=== PATIENT | female | born 1955 | race Caucasian/White ===

== ENCOUNTER 2024-11-27 09:27 | Emergency (ER) | payer OTHER, SELFPAY ==
[2024-11-27 09:36] VITALS: BP 121/67; PULSE 71; RESP 18; TEMP 36.4; BMI 34.2
--- NOTE | 2024-11-27 09:47 | XR_ITS ---
Examination: CT lumbar spine, without contrast. 2-D sagittal reconstructions. 2-D coronal reconstructions. 3-D reconstructions. Date and time of exam:November 27, 2024 1042 hours INDICATIONS: Onset lower back pain today CTDI: vol (mGy):26.8 DLP: (mGycm):856 Technique: Multiple 1.25 mm axial sections of the lumbar spine without intravenous contrast have been obtained. 2-D sagittal and coronal reconstructions have been obtained. 3-D reconstructions have been obtained. Low dose protocols were performed. One or more of the following dose reduction techniques were used; automated exposure control, adjustment of the mA and/or KV according to patient size, use of iterative reconstruction technique. Findings: Severe osteopenia Lumbar dextroscoliosis 12 degrees No lumbar fracture Diffuse advanced lumbar degenerative disc disease No spondylolisthesis Lumbar pedicles laminated transverse and posterior spinous processes intact L5-S1 2 mm central lumbar disc bulge with bilateral neural foraminal stenosis and mild bilateral L5 ganglionic compression L4-L5 3 mm central lumbar disc bulge L3-L4 no disc protrusion L2-L3 no disc protrusion L1-L2 no disc protrusion Atrophic severely scarred left kidney with 6 mm calculus 8mm anterior right renal calculus 2 mm upper pole right renal calculus 2 mm calculus in the right renal pelvis No hydronephrosis IMPRESSION: Diffuse advanced lumbar degenerative disc disease L5-S1 2 mm central lumbar disc bulge, mild bilateral L5 ganglionic compression L4-L5 3 mm central lumbar disc bulge Elective MRI lumbar spine without contrast follow-up would BE strongly preferable in assessing for acquired lumbar spinal stenosis Bilateral renal calculi as above including severely scarred left kidney
--- NOTE | 2024-11-27 09:48 | PD.EDRME ---
Rapid Medical Screening Exam RME Arrival date/time: 11/27/24 09:27 69-year-old female presents to the emergency department for complaints of lower back pain ongoing x 1 week Chief Complaint: Back Pain/Injury Time Seen by Provider: 11/27/24 09:45 Vital signs: Vital Signs Temperature 97.6 F 11/27/24 09:36 Pulse Rate 71 11/27/24 09:36 Respiratory Rate 18 11/27/24 09:36 Blood Pressure 121/67 11/27/24 09:36
[2024-11-27] MEDS: KETOROLAC INJ 30 MG/ML VIAL IM (10:01)
[2024-11-27] MEDS: DIAZEPAM 5 MG TABLET PO (10:01)
[2024-11-27 10:24] LABS: Basophils % (Auto) 0 % (0-2.5); Eosinophils # (Auto) 0.2 Thou/mm3 (0.0-0.5); Eosinophils % (Auto) 2 % (0-10); Hematocrit 40.7 % (36.0-46.0); Hemoglobin 13.6 g/dL (12.0-16.0); Immature Granulocytes % (Auto) 0 % (0-0); Immature Granulocytes Auto 0.01 Thou/mm3 (0.00-0.00); Lymphocytes # (Auto) 1.5 Thou/mm3 (1.0-4.8); Lymphocytes % (Auto) 19 % (10-50); Mean Corpuscular HGB Conc 33.4 g/dl (31.0-37.0); Mean Corpuscular Hemoglobin 29.1 pg (25.0-35.0); Mean Corpuscular Volume 87 fL (80-100); Monocytes # (Auto) 0.7 Thou/mm3 (0.0-0.8); Monocytes % (Auto) 9 % (0-12); Neutrophils # (Auto) 5.5 Thou/mm3 (1.8-7.7); Neutrophils % (Auto) 69 % (37-80); Nucleated Red Blood Cell % 0 /100 WBC (0); Platelet Count 218 Thou/mm3 (140-440); RDW Standard Deviation 42.9 fL (36.4-46.3); Red Blood Count 4.68 Miln/mm3 (4.00-5.20); White Blood Count 7.9 Thou/mm3 (3.6-11.0)
[2024-11-27 10:26] LABS: Collection Type, Urine Clean Catch
[2024-11-27 10:34] LABS: Bacteria,Urine Rare; Bilirubin,Urine Negative (Negative); Blood,Urine 1+ (Negative); Clarity,Urine Clear (Clear/Hazy); Color,Urine Yellow (Lt Yel-Yel); Glucose, Urine Negative (Negative); Ketones,Urine Negative (Negative); Leukocyte Esterase,Urine Positive (Negative); Nitrite,Urine Negative (Negative); Protein,Urine 1+ (Neg - Trace); RBC,Urine 5 /hpf (0-3); Specific Gravity,Urine 1.023 (1.001-1.035); Squamous Epithelial Cell,Urine < 1 /hpf (0-5); Urobilinogen,Urine Negative mg/dL (0.0-1.0); WBC,Urine 30 /hpf (0-5)
[2024-11-27 10:35] LABS: Culture Indicated,Urine Yes
[2024-11-27 10:55] LABS: Alanine Aminotransferase 10 U/L (10-49); Albumin, Serum 4.1 gm/dL (3.4-4.8); Albumin/Globulin Ratio 1.3 (1.2-2.2); Alkaline Phosphatase 96 U/L (46-116); Anion Gap 6 (7-16); Aspartate Amino Transferase 13 U/L (0-34); BUN/Creatinine Ratio 26 Ratio (12-20); Bilirubin,Total 0.4 mg/dL (0.3-1.2); Blood Urea Nitrogen 21 mg/dL (9-23); Calcium 9.9 mg/dL (8.3-10.6); Calcium (Corrected) 9.9 mg/dL (8.5-10.1); Carbon Dioxide 29.7 mMol/L (20.0-31.0); Chloride 107 mMol/L (98-107); Creatinine (Component) 0.8 mg/dL (0.6-1.3); Estimated Creatinine Clearance 66.1 mL/min (>60); Globulin 3.1 gm/dL (2.3-3.5); Glucose 124 mg/dL (74-106); Lipase 46 U/L (12-53); Osmolality,Calculated 288 (275-295); Sodium 143 mMol/L (136-145); Total Protein 7.2 gm/dL (5.7-8.2); eGFR > 60 See Note
--- NOTE | 2024-11-27 15:23 | EDNOTE_ITS ---
ED General RME/HPI General Chief complaint: Back Pain/Injury Stated complaint: BACK PAIN X 1 WK; HYDROOCODONE X LAST NIGHT Time Seen by Provider: 11/27/24 09:45 Arrival date/time: 11/27/24 09:27 CC: Left low back pain HPI ongoing for 1 week, the patient thinks after lifting pots, the patient is usually active, and has had back pain in the past, but this episode is the worst . Patient denies bowel or bladder symptoms saddle anesthesia numbness or tingling or weakness in the lower extremity. Patient is awake alert oriented in mild is comfortable not in any acute distress. The patient states she got significant relief from the medicines given in the waiting room. RME / HPI RME / HPI narrative: 11/27/24 09:27 69-year-old female presents to the emergency department for complaints of lower back pain ongoing x 1 week Related Data Previous Rx's ?Medication ?Instructions ?Recorded cyclobenzaprine 10 mg tablet 10 mg PO HS #14 tabs 11/06 10/29 meloxicam 7.5 mg tablet 7.5 mg PO QDAY #14 tabs 11/06 10/29 Allergies Allergy/AdvReac Type Severity Reaction Status Date / Time No Known Allergies Allergy Verified 11/27/24 09:31 Review of Systems Review of Systems Narrative Review of Systems: GEN: No fever, no chills, no weight loss EYES: No discharge, no visual changes, no pain HEENT: No ear pain, no congestion, no sore throat PULM: No shortness of breath, no cough, no congestion CV: No chest pain, no dyspnea on exertion, no palpitations GI: No nausea, no vomiting, no diarrhea, no pain, no constipation : No frequency, no urgency, no dysuria MUSC/SKEL: No joint pain, + back pain SKIN: No rash PSYCH: No hallucinations, no depression HEME/LYMPH: No easy bleeding or bruising tendencies NEURO: No weakness, no headache Past Medical History Social History SMOKING STATUS: Never smoker ED Exam Narrative Physical exam: [General: Obese in mild discomfort but not in any acute distress Head normocephalic HEENT: Eyes pupils are PERRLA EOMs are intact all other subsystems of HEENT are within acceptable limits Neck is supple nontender Chest equal chest rise nontender to palpation Respiratory: Clear to auscultation no wheezes crackles or rubs CV: Rate rhythm is regular no murmurs rubs or clicks Abdomen is distended secondary to body habitus soft nontender no masses positive bowel sounds all 4 quadrants Back: Right lower lumbar sacral paraspinal tenderness with palpation. No pain with palpation of the spinous processes of her lumbar and sacrum, minimal left lumbar sacral para spinal tenderness. No thoracic tenderness, no cervical tenderness. Skin: Intact no petechiae rash induration ulceration or crepitus Extremities: Moving all extremity against resistance cap refill less than 2 seconds neurosensory intact Neuro: Awake alert oriented x3 Glascow coma 15 no focal deficits] Course Quality Measures none Orders Category Date Time Status CT lumbar spine wo con Stat Exams 11/27/24 09:47 Completed CBC Stat Lab 11/27/24 10:11 Completed Comprehensive Metabolic Panel Stat Lab 11/27/24 10:11 Completed Lipase Stat Lab 11/27/24 10:11 Completed UA, C/S IF [Urinalysis, C/S if Indicated] Stat Lab 11/27/24 10:23 Completed Urine Culture Stat Lab 11/27/24 10:23 Received Diazepam [Valium] Med 11/27/24 09:47 Discontinued 5 mg PO X1 ONE Ketorolac Inj [Toradol Inj] Med 11/27/24 09:47 Discontinued 30 mg IM X1 ONE Vital Signs Vital signs: Vital Signs Temperature 97.6 F 11/27/24 09:36 Pulse Rate 71 11/27/24 09:36 Respiratory Rate 18 11/27/24 09:36 Blood Pressure 121/67 11/27/24 09:36 Discharge Plan Plan Patient Disposition: HOME (Self Care) Patient condition on transfer: Stable Prescriptions/Referrals Prescriptions/Med Rec: New cyclobenzaprine 10 mg tablet 10 mg PO HS Qty: 14 0RF meloxicam 7.5 mg tablet 7.5 mg PO QDAY Qty: 14 0RF Referrals: Socorro Quintanilla MD [Primary Care Provider] - In 1 week Problem List Clinical Impression: Strain of lumbar region Patient/Caregiver Discharge Instructions Education Materials: ED Back Sprain/Strain Additional Instructions: Avoid all lifting until further notice, attempt getting in the pool and walking in the water for 15 minutes advance to 30 months as tolerated. Take the medication for temporary pain relief. Attempt to modify your diet to and attempting to lose some weight. Advance as tolerated. Follow-up with your primary care doctor. Print Language: Turkish Stand Alone Forms: Sarah Award Info., Patient Portal Info Letter PA/PARTS CATALOGUER Supervising Physician PA/PARTS CATALOGUER Supervising Physician: Richy Conte ENP MDM Patient Acuity High Acuity (complete MDM) Clinical Information Provided by: patient Medical Records reviewed [facility] Chronic Illness/Social Conditions which may negatively complicate care or outcome(s)-explain: None or not applicable Labs Labs: Interpreted by me Lab(s) Interpretation(s): CBC shows no acute leukocytosis anemia thrombocytopenia CMP shows no acute electrolyte imbalances renal impairment transaminitis or T. bili elevation. Urine is negative for any acute finding Lumbar CT shows right renal pelvis calculi and disc bulging from L5-S3. This is interpreted by me read by radiology. Medication Administration(s) Medication Administration History Discontinued Medications Diazepam (Diazepam 5 Mg Tablet) 5 mg PO X1 ONE Stop: 11/27/24 09:48 Last Admin: 11/27/24 10:01 Dose: 5 mg Documented By: Ketorolac Tromethamine (Ketorolac Inj 30 Mg/Ml Vial) 30 mg IM X1 ONE Stop: 11/27/24 09:48 Last Admin: 11/27/24 10:01 Dose: 30 mg Documented By: Diagnosis Differential Diagnosis ED Complaint MDM: Lumbar fracture sacral fracture lumbar strain
== END 2024-11-27 15:57 | disposition home or self-care (01) ==
PROVIDERS: Nurse Practitioner Primary Care; Emergency Provider Emergency Medicine; PCP Family Medicine
DX: S39.012A Strain of muscle, fascia and tendon of lower back, initial encounter (principal); X50.9XXA Other and unspecified overexertion or strenuous movements or postures, initial encounter
CPT/HCPCS: 36415; 72131; 80053; 81001; 83690; 85025; 87077; 87086; 87186; 96372; 99284; J1885; A9270